=== PATIENT | female | born 1990 | race Caucasian/White ===

== ENCOUNTER 2021-10-08 23:20 | Emergency (ER) | payer SELFPAY ==
[2021-10-09] MEDS ORDERED: HYDROCODONE/APAP 5/325 MG TAB ONE (01:33)
--- NOTE | 2021-10-09 03:29 | EDPHYS ---
Physician Documentation [facility] Name: Carmen Peng Age: 30 yrs Sex: Female : 1990 Arrival Date: 10/08/2021 Time: 23:23 Bed 12 Private MD: ED Physician Mert Ortiz HPI: 10/09 03:20 This 30 yrs old Female presents to ER via Wheelchair with complaints of Ankle Injury. mh7 03:20 The patient presents with an injury. The complaints affect the right ankle. mh7 03:20 Onset: The symptoms/episode began/occurred just prior to arrival. Context: The problem mh7 was sustained on a street or driveway, resulted from a mis-step by the patient, pothole, The mechanism of injury involved inversion of the affected ankle. The patient can partially bear weight on the affected extremity. the patient is able to ambulate, with moderate difficulty. Associated signs and symptoms: Pertinent positives: swelling, Pertinent negatives: calf tenderness, fever, nausea, numbness, rash, tingling, vomiting, warmth, weakness. Modifying factors: The symptoms are alleviated by nothing, the symptoms are aggravated by weight bearing. Severity of symptoms: At their worst the symptoms were moderate, just prior to arrival, in the emergency department the symptoms have improved, markedly. Historical: - Allergies: 10/08 23:50 No Known Allergies; jb4 - Home Meds: 23:50 None [Active]; jb4 - PMHx: 23:50 PTSD; Anxiety; Depressive disorder; neuro cardiogenic syncope; jb4 - PSHx: 23:50 ; Adenoid excision; Tonsillectomy; wisdom teeth removal; tubal; jb4 - Immunization history:: Adult Immunizations up to date. - Social history:: Smoking status: Patient reports the use of cigarette tobacco products, smokes one-half pack cigarettes per day, Patient uses street drugs, marijuana, Patient/guardian denies using alcohol. ROS: 10/09 03:20 Constitutional: Negative for fever, chills, and weight loss, Eyes: Negative for injury, mh7 pain, redness, and discharge, ENT: Negative for injury, pain, and discharge, Neck: Negative for injury, pain, and swelling, Cardiovascular: Negative for chest pain, palpitations, and edema, Respiratory: Negative for shortness of breath, cough, wheezing, and pleuritic chest pain, Abdomen/GI: Negative for abdominal pain, nausea, vomiting, diarrhea, and constipation, Back: Negative for injury and pain, : Negative for injury, bleeding, discharge, and swelling, Neuro: Negative for headache, weakness, numbness, tingling, and seizure, Psych: Negative for depression, anxiety, suicide ideation, homicidal ideation, and hallucinations, Allergy/Immunology: Negative for hives, rash, and allergies, Endocrine: Negative for neck swelling, polydipsia, polyuria, polyphagia, and marked weight changes, Hematologic/Lymphatic: Negative for swollen nodes, abnormal bleeding, and unusual bruising. Exam: 03:20 Constitutional: This is a well developed, well nourished patient who is awake, alert, mh7 and in no acute distress. Head/Face: Normocephalic, atraumatic. Eyes: Pupils equal round and reactive to light, extra-ocular motions intact. Lids and lashes normal. Conjunctiva and sclera are non-icteric and not injected. Cornea within normal limits. Periorbital areas with no swelling, redness, or edema. Skin: Warm, dry with normal turgor. Normal color with no rashes, no lesions, and no evidence of cellulitis. Neuro: Awake and alert, GCS 15, oriented to person, place, time, and situation. Cranial nerves II-XII grossly intact. Motor strength 5/5 in all extremities. Sensory grossly intact. Cerebellar exam normal. Normal gait. Psych: Awake, alert, with orientation to person, place and time. Behavior, mood, and affect are within normal limits. 03:20 Musculoskeletal/extremity: Extremities: noted in the right ankle: pain, swelling, tenderness, ROM: limited active range of motion due to pain, limited passive range of motion due to pain, Circulation is intact in all extremities. Sensation intact. Compartment Syndrome exam of affected extremity: is normal. no numbness, no tingling, no sensation deficit, no palor, no weak pulses, Joints: the right ankle displays painful range of motion, swelling, tenderness, Weight bearing: can bear weight with assistance only, uses crutch, Tendon exam: specific tendon testing normal through active and passive range of motion Vital Signs: 10/08 23:48 BP 119 / 90; Pulse 83; Resp 16; Temp 98.5(O); Pulse Ox 98% on R/A; Weight 54.43 kg (R); [facility] Height 5 ft. 5 in. (165.10 cm) (R); Pain 0/10; 10/09 03:20 BP 102 / 76; Pulse 78; Resp 16; Pulse Ox 96% on R/A; [facility] 10/08 23:48 Body Mass Index 19.97 (54.43 kg, 165.10 cm) [facility] MDM: 03:26 Differential diagnosis: fracture, sprain, arthritis. Data reviewed: vital signs, nurses [facility] notes, radiologic studies, plain films. Counseling: I had a detailed discussion with the patient and/or guardian regarding: the historical points, exam findings, and any diagnostic results supporting the discharge/admit diagnosis, radiology results, the need for outpatient follow up, a orthopedic surgeon, to return to the emergency department if symptoms worsen or persist or if there are any questions or concerns that arise at home. Response to treatment: the patient's symptoms have markedly improved after treatment. 03:28 Patient medically screened. [facility] 10/08 23:57 Order name: Ankle Right 3 View XRAY [facility] 10/09 03:19 Order name: Splint - Ankle: Aircast; Complete Time: 03:29 [facility] Administered Medications: 01:28 Drug: HYDROcodone-acetaminophen 5 mg-325 mg 1 tabs Route: PO; [facility] 03:29 Follow up: Response: No adverse reaction; Marked relief of symptoms; Pain is decreased [facility] Disposition Summary: 10/09/21 03:28 Discharge Ordered Location: Home [facility] Problem: new [facility] Symptoms: have improved [facility] Condition: Stable [facility] Diagnosis - Sprain of ankle - Right [facility] Followup: [facility] - With: Private Physician - When: 1 - 2 days - Reason: Worsening of condition, Recheck today's complaints, Continuance of care, Re-evaluation by your physician Followup: [facility] - With: Wang Quijano MD - When: 2 - 3 days - Reason: Worsening of condition, Recheck today's complaints Discharge Instructions: - Discharge Summary Sheet [facility] - Crutch Use, Adult, [id number] - Ankle Sprain, [id number] [facility] Forms: - Medication Reconciliation Form [facility] - Thank You Letter [facility] - Antibiotic Education [facility] - Prescription Opioid Use [facility] Prescriptions: - ketorolac 10 mg Oral tablet - take 1 tablet by ORAL route every 6-8 hours As needed not to exceed 40 mg in [facility] 24hrs; 15 tablet; Refills: 0, Product Selection Permitted Signatures: Dispatcher [employer] Del Edwards RN RN jb4 Mert Ortiz MD MD [facility] Corrections: (The following items were deleted from the chart) 10/08 23:52 23:50 Allergies: Aspirin; [facility] jb4 10/09 03:29 03:19 Crutches ordered. [facility] jb4
--- NOTE | 2021-10-09 03:29 | ER ---
Nurse's Notes [facility] Name: Carmen Peng Age: 30 yrs Sex: Female : 1990 Arrival Date: 10/08/2021 Time: 23:23 Bed 12 Private MD: Diagnosis: Sprain of ankle-Right Presentation: 10/08 23:48 Chief complaint: Patient states: I was doing karate with my son. I tried to do a kick jb4 and landed in a hole and my foot bent sideways and touched the inside of my leg. Coronavirus screen: At this time, the client does not indicate any symptoms associated with coronavirus-19. Ebola Screen: (+) Ebola Screening. Initial Sepsis Screen: Does the patient meet any 2 criteria? No. Patient's initial sepsis screen is negative. Does the patient have a suspected source of infection? No. Patient's initial sepsis screen is negative. Risk Assessment: Do you want to hurt yourself or someone else? Patient reports no desire to harm self or others. Onset of symptoms was October 08, 2021. Transition of care: patient was not received from another setting of care. 23:48 Method Of Arrival: Wheelchair jb4 23:48 Acuity: KENNY 4 jb4 Triage Assessment: 23:50 General: Appears in no apparent distress. comfortable, Behavior is calm, cooperative, jb4 appropriate for age. Pain: Complains of pain in right foot Pain does not radiate. Pain currently is 0 out of 10 on a pain scale. at worst was 9 out of 10 on a pain scale. Neuro: [place]ellon Agitation-Sedation Scale (RASS): 0 - Alert and Calm Level of Consciousness is awake, alert, obeys commands, Oriented to person, place, time, situation. Cardiovascular: Patient's skin is warm and dry. Respiratory: Airway is patent Respiratory effort is even, unlabored, Respiratory pattern is regular, symmetrical. Derm: Skin is intact, Skin is pink, warm \T\ dry. Musculoskeletal: Circulation, motion, and sensation intact. Range of motion: intact in all extremities. Historical: - Allergies: 23:50 No Known Allergies; jb4 - Home Meds: 23:50 None [Active]; jb4 - PMHx: 23:50 PTSD; Anxiety; Depressive disorder; neuro cardiogenic syncope; jb4 - PSHx: 23:50 ; Adenoid excision; Tonsillectomy; wisdom teeth removal; tubal; jb4 - Immunization history:: Adult Immunizations up to date. - Social history:: Smoking status: Patient reports the use of cigarette tobacco products, smokes one-half pack cigarettes per day, Patient uses street drugs, marijuana, Patient/guardian denies using alcohol. Screenin/13 00:00 Abuse screen: Denies threats or abuse. Nutritional screening: No deficits noted. jb4 Tuberculosis screening: No symptoms or risk factors identified. Fall Risk None identified. Assessment: 02:40 Reassessment: Patient appears in no apparent distress at this time. Patient and/or jb4 family updated on plan of care and expected duration. Pain level reassessed. Patient is alert, oriented x 3, equal unlabored respirations, skin warm/dry/pink. Patient states feeling better. 03:41 Reassessment: Patient appears in no apparent distress at this time. Patient and/or jb4 family updated on plan of care and expected duration. Pain level reassessed. Patient is alert, oriented x 3, equal unlabored respirations, skin warm/dry/pink. Patient states feeling better. Vital Signs: 10/08 23:48 BP 119 / 90; Pulse 83; Resp 16; Temp 98.5(O); Pulse Ox 98% on R/A; Weight 54.43 kg (R); jb4 Height 5 ft. 5 in. (165.10 cm) (R); Pain 0/10; 10/09 03:20 BP 102 / 76; Pulse 78; Resp 16; Pulse Ox 96% on R/A; jb4 10/08 23:48 Body Mass Index 19.97 (54.43 kg, 165.10 cm) jb4 ED Course: 10/08 23:23 Patient arrived in ED. bp1 23:50 Triage completed. jb4 23:50 Arm band placed on right wrist. jb4 10/09 00:00 Patient has correct armband on for positive identification. jb4 00:07 X-ray completed. Patient moved to radiology via wheelchair. Patient taken to alysia mares Patient moved back from radiology. 01:12 Mert Ortiz MD is Attending Physician. [facility] 01:26 Del Hackett, CHAVA is Primary Nurse. jb4 02:41 No provider procedures requiring assistance completed. Patient did not have IV access jb4 during this emergency room visit. 03:27 Wang Quijano MD is Referral Physician. 7 Administered Medications: 01:28 Drug: HYDROcodone-acetaminophen 5 mg-325 mg 1 tabs Route: PO; jb4 03:29 Follow up: Response: No adverse reaction; Marked relief of symptoms; Pain is decreased jb4 Medication: 02:40 VIS not applicable for this client. jb4 Outcome: 03:28 Discharge ordered by . [facility] 03:41 Discharged to home via wheelchair, with friend. jb4 03:41 Condition: stable 03:41 Discharge instructions given to patient, Instructed on discharge instructions, follow up and referral plans. medication usage, Demonstrated understanding of instructions, follow-up care, medications, Prescriptions given X 1. 03:41 Patient left the ED. jb4 Signatures: Dispatcher [employer] Del Edwards RN RN jb4 Rafaela Yancey md1 Grace Gomez Maurice, MD MD [facility] Corrections: (The following items were deleted from the chart) 10/08 23:52 23:50 Allergies: Aspirin; jb4 jb4 10/09 00:29 00:14 In radiology for Ankle Right 3 View+[email or web address]. RUDDY [place]
[2021-10-09 03:51] VITALS: TEMP 98.5
[2021-10-09 03:52] VITALS: BP 102/76; O2SAT 96
--- NOTE | 2021-10-09 15:35 | RAD REPORT ---
EXAM DESCRIPTION: RAD - Ankle Right 3 View - 10/09/2021 12:09 am CLINICAL HISTORY: 30 years, Female, SWELLING COMPARISON: None. FINDINGS: 3 X-ray views of the right ankle (frontal, lateral and oblique views) were performed. There is no evidence for fracture or dislocation. The ankle mortise is intact. There is no signif icant joint effusion. There are no gross intraosseous lesions. There is soft tissue swelling along the lateral malleolus. IMPRESSION: Soft tissue swelling along the lateral malleolus. No definitive evidence for acute bony injuries. Electronically signed by: Ike Gregorio MD 10/09/2021 12:21 AM CDT Due to temporary technical issues with the PACS/Fluency reporting system, reports are being signed by the in house radiologist without review as a courtesy to ensure prompt reporting. The interpreting r adiologist is fully responsible for the content of the report.
== END 2021-10-09 03:41 | disposition home or self-care (01) ==
LOC: ER 23:20
DX: S93.401A Sprain of unspecified ligament of right ankle, initial encounter (principal); X50.1XXA Overexertion from prolonged static or awkward postures, initial encounter; Y93.59 Activity, other involving other sports and athletics played individually; Y92.017 Garden or yard in single-family (private) house as the place of occurrence of the external cause; F43.10 Post-traumatic stress disorder, unspecified; D41.8 Neoplasm of uncertain behavior of other specified urinary organs; F17.210 Nicotine dependence, cigarettes, uncomplicated
CPT/HCPCS: 99283